=== PATIENT | female | born 1970 | race Caucasian/White ===

== ENCOUNTER 2022-05-27 09:05 | Outpatient (CLI) | payer OTHER, SELFPAY ==
[2022-05-27 18:40] LABS: Hematocrit 40.6 % (37.0-47.0); Hemoglobin 13.2 g/dL (12.0-15.0); Mean Corpuscular HGB Conc 32.5 g/dl (32-36); Mean Corpuscular Hemoglobin 28.8 pg (26-34); Mean Corpuscular Volume 88.5 fl (80-100); Mean Platelet Volume 10.5 fl (7.4-10.4); Platelet Count Result 285 k/mm3 (150-375); Red Blood Count 4.59 M/mm3 (4.2-5.4); Red Cell Distribution Width 12.2 % (11.5-14.5); White Blood Count 5.6 K/mm3 (4.5-10.0)
[2022-05-27 19:24] LABS: Hemoglobin A1C 5.5 % (<5.7)
[2022-05-27 19:43] LABS: Vitamin D 25 Hydroxy 53.4 ng/mL
[2022-05-31 06:02] LABS: FSH 105.6 mIU/mL (***); LH 29.4 mIU/mL (***)
== END 2022-05-27 09:06 | disposition home or self-care (01) ==
LOC: ANHGOSHLAB 09:08
PROVIDERS: PCP Internal Medicine; Visit Provider Nurse Practitioner
DX: R53.83 Other fatigue (principal); N91.2 Amenorrhea, unspecified
CPT/HCPCS: 36415; 82306; 82607; 83001; 83002; 83036; 84439; 84443; 85027